=== PATIENT | female | born 1930 | race Caucasian/White ===

== ENCOUNTER → 2016-04-30 | Outpatient (CLI) | payer MEDICARE, OTHER ==
[~2016-04-30] MED LIST: AMLO-147 PO; ASPI-781 PO; OXYC-481 PO; TRAM50TA2 PO; WALK1EAC23 MC; ZOLP5TAB PO
--- NOTE | 2016-04-30 17:46 | RADRPT ---
PROCEDURE: XR Knees. CLINICAL INDICATION: Bilateral knee pain. TECHNIQUE: Total of six views. Frontal, oblique, and lateral views of both knees. COMPARISON: Right knee radiographs dated 01/04/2016. FINDINGS: There is no fracture or dislocation. The soft tissues are normal. 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 There is no evidence of l oosening. There is no lytic or blastic lesion. There is no joint effusion. IMPRESSION: 1. Satisfactory postoperative appearance of the knees. RPTAT: QQ .Galdino Sarabia MD, MD Date Time Electronically viewed and signed by .Galdino Sarabia MD, MD on 04/30/2016 17:46 .R/
== END | disposition home or self-care (01) ==
LOC: HKI 09:07
PROVIDERS: ATTEND Orthopaedic Surgery
DX: Z47.1 Aftercare following joint replacement surgery (principal); Z96.653 Presence of artificial knee joint, bilateral
CPT/HCPCS: 73562; G0463